=== PATIENT | female | born 1965 | race Caucasian/White ===

== ENCOUNTER 2023-12-24 08:10 | Day surgery (SDC) | payer BC ==
[~2023-12-24] VITALS: Ht 170.2 cm; Wt 118.2 kg
[~2023-12-24 08:10] MED LIST: CEFAZOLIN SODIUM 2 GM/20 ML SYR IV SCH; COZAAR50 MG PO; GRALISE600 MG PO; IBLOOD GLUCOSE TEST STRIP 1 EA TEST VI PRN; LACTATED RINGER'S 1,000 ML IV SCH; LAMICTAL XR100 MG PO; LIDOCAINE HCL 1% 5 ML SDV INJ ONE; LITHIUM CARBON150 MG PO; MIDAZOLAM HCL 5 MG/5 ML VIAL IV PRN; fentaNYL citrate 100 MCG/2 ML VIAL IV PRN
[2023-12-24 08:28] VITALS: BP 141/72
[2023-12-24] MEDS ORDERED: LAMOTRIGINE50 MG PO (08:36)
[2023-12-24] MEDS ORDERED: LITHIUM CARBON300 MG PO (08:36)
[2023-12-24] MEDS ORDERED: LAMOTRIGINE100 M1 PO (08:37)
[2023-12-24] MEDS ORDERED: MIDAZOLAM HCL 5 MG/5 ML VIAL ONE ×2 (10:17→11:00)
[2023-12-24] MEDS ORDERED: fentaNYL citrate 100 MCG/2 ML VIAL ONE (10:17)
[2023-12-24 12:28] VITALS: BP 131/63
--- NOTE | 2023-12-24 12:34 | NUR ---
12/24/23 1234 Lauren Salamanca 1116- PT PRESENTS TO PACU, LEFT LATERAL POSITION. AWAKE BUT DROWSY, ANSWERS QUESTIONS APPROPRIATELY. ABD ROUND, FIRM, ENCOURAGED TO PASS GAS. PT DENIES PAIN AND NAUSEA. LR INFUSING TO RFA IV, O2 AT 2L PER NC. ALL MONITORS IN PLACE. NO SIGNS OF DISTRESS. 1128- PT RESTING INTERMITTENTLY, MORE AWAKE THAN NOT. WAKES EASILY TO VERBAL STIMULI. PT SAT UP IN BED DRINKING WATER, TOLERATING WELL.
--- NOTE | 2023-12-25 09:47 | OR ---
[facility] [address] [place], [place] [address] Signed DATE OF OPERATION: 12/24/2023 SURGEON: Lauri Lombardo MD PREOPERATIVE DIAGNOSIS: Colon screening. POSTOPERATIVE DIAGNOSES: 1. Sigmoid left-sided diverticulosis. 2. Small polyp sigmoid. PROCEDURE: Total colonoscopy to cecum with cold morcellation polypectomy x1. ANESTHESIA: Intravenous sedation fentanyl 200 mcg and Versed 4 mg. INDICATION: This 58-year-old white woman is a patient of EAN Fontanez. She underwent colonoscopy by Dr. Dayne Whelan greater than 10 years ago in [place], [place]. She is symptom-free, currently has no family history of colon cancer. She is admitted to undergo screening colonoscopy. Understands the risk of bleeding, infection, and perforation. FINDINGS: The prep was adequate. Complete colonoscopy was undertaken to the cecum with visualization of the cecum, but not full intubation of the cecum. She had a fair amount of discomfort during the course of the procedure early on in passage to the sigmoid. There was a small polyp of the sigmoid, which was excised with cold morcellation technique. Numerous diverticula were noted of the sigmoid and left colon. PROCEDURE IN DETAIL: The patient was brought to the endoscopy suite and placed in lateral decubitus position, given intravenous sedation to the point of slurred speech and nystagmus. Digital rectal examination was normal. An Olympus video colonoscope was passed in the rectum and manipulated into the sigmoid. Passage to the sigmoid was somewhat slow and laborious and with some discomfort requiring additional intravenous sedation medication. Once past the sigmoid scope was advanced further to the cecum and ultimately the cecum was visualized, though not fully Electronically Signed By: LAURI LOMBARDO MD 12/25/23 0947 PATIENT NAME: WONG SAMSON OPERATIVE REPORT DATE OF : 61 REPORT #: [id number] PHYSICIAN: LAURI LOMBARDO MD PCP: KIARA MOONEY PA-C REPORT IS CONFIDENTIAL AND NOT TO BE RELEASED WITHOUT AUTHORIZATION [facility] [address] [place], [place] [address], [place] [address] Signed intubated. The ileocecal valve allowed for egress of enteric contents, which was well visualized. The scope was withdrawn from that point and examination undertaken showed no sign of abnormality other than diverticulosis until the sigmoid where a small polyp was noted. This was excised with cold morcellation technique. Further withdrawal out for retroflexed view of the rectum, which was normal. Scope was removed. The patient was taken to recovery room in good condition. CONCLUDING DIAGNOSIS: Small polyp and diverticulosis. PLAN: Recommend repeat colonoscopy in 3-5 years. Would recommend use of propofol sedation on next colonoscopy based on patient tolerance. MD VEL Castellon/PREM /[id number] cc: EAN Fontanez Copies: ~ Electronically Signed By: LAURI LOMBARDO MD 12/25/23 0947 PATIENT NAME: WONG SAMSON OPERATIVE REPORT DATE OF : 61 REPORT #: [id number] PHYSICIAN: LAURI LOMBARDO MD PCP: KIARA MOONEY PA-C REPORT IS CONFIDENTIAL AND NOT TO BE RELEASED WITHOUT AUTHORIZATION
--- NOTE | 2023-12-29 11:51 | PATH ---
[facility] [address] [facility] [place] [place] [address] Signed SPECIMEN(S): A SIGMOID POLYP SPECIMEN SOURCE: A. SIGMOID POLYP CLINICAL HISTORY: Surveillance colonoscopy. Polyp. FINAL PATHOLOGIC DIAGNOSIS: Sigmoid polyp, biopsy: - Hyperplastic polyp. AMB MICROSCOPIC EXAMINATION: Histologic sections of all submitted blocks are examined by light microscopy. These findings, together with the gross examination, support the pathologic diagnosis. GROSS DESCRIPTION: The specimen, labeled and designated "Kody sigmoid polyp," is received in formalin and consists of one wright soft tissue fragment, 0.3 cm. Entirely submitted in (A1). VB (under the direct supervision of a pathologist) The Gross Description was prepared using a voice recognition system. The report was reviewed for accuracy; however, sound-alike word errors, addition and/or deletions may occur. If there is any question about this report, please contact Client Services. ADDITIONAL NOTES: Immunohistochemical and/or in situ hybridization studies if performed in this case included appropriate positive controls that reacted as expected. This test was developed and its performance characteristics determined by [facility]. It has not been cleared or approved by the U.S. Food and Drug Administration. The FDA has determined that such clearance or approval is not necessary. This test is used for clinical purposes. It should not be regarded as investigational or for research. [facility] is certified under the Clinical Laboratory Improvement Amendments of 1988 (CLIA) as qualified to perform high complexity clinical laboratory testing. PATIENT NAME: WONG SAMSON PATHOLOGY DATE OF : 61 REPORT #: [id number] PHYSICIAN: VASQUEZ GONZALES PCP: KIARA MOONEY PA-C REPORT IS CONFIDENTIAL AND NOT TO BE RELEASED WITHOUT AUTHORIZATION [facility] [address] [place] [address] Signed PERFORMING LABORATORY: Technical component was performed by [facility], [address] [place] [id number] (CLIA# [id number]). Professional interpretation was performed by [facility] - [address] [id number] Diagnostician: Stefani Servin MD Pathologist Electronically Signed 12/29/2023 Copies: ~ PATIENT NAME: WONG SAMSON PATHOLOGY DATE OF : 61 REPORT #: [id number] PHYSICIAN: VASQUEZ GONZALES PCP: KIARA MOONEY PA-C REPORT IS CONFIDENTIAL AND NOT TO BE RELEASED WITHOUT AUTHORIZATION
== END 2023-12-24 11:50 | disposition home or self-care (01) ==
LOC: OPS 08:10 → DS 08:10 → OPS 10:45 → DS 12:00
PROVIDERS: ATTEND Surgery
PROC: 0DBN8ZX Excision of Sigmoid Colon, Via Natural or Artificial Opening Endoscopic, Diagnostic (ICD-10-PCS; principal; 2023-12-24 10:45)
DX: Z12.11 Encounter for screening for malignant neoplasm of colon (principal); K63.5 Polyp of colon; K57.30 Diverticulosis of large intestine without perforation or abscess without bleeding; F31.9 Bipolar disorder, unspecified; G25.81 Restless legs syndrome; I10 Essential (primary) hypertension
CPT/HCPCS: 99153; G0500; J0690; J2250; J3010; J7121